=== PATIENT | female | born 1965 | race Caucasian/White ===

== ENCOUNTER → 2019-05-14 15:15 | Outpatient (CLI) | payer OTHER, SELFPAY ==
--- NOTE | 2019-05-14 15:15 | CYST_PTH ---
PATIENT: SCOT SHEPPARD LOC: [facility] U#:[id number] AGE/SX: 59/F ROOM: RE05/14/[address]: Dr. Jaspal Nagel MD : 1965 BED: DIS: SPEC #: [id number] RECD: 05/15/19 15:34 STATUS: ISABELLA BRUCE #: [id number] DAMION: 05/14/19 15:[address]: Jaspal Nagel DEPT: SURGICAL PATHOLOGY RECD BY: Rebecca Lowe ENTERED: 05/18/19 10:30 SP TYPE: Cyst OTHR DR: Dr. Riaz Louis, [facility] Tissues: CYST Procedures: Surgery Specimen Level III HEADER OPERATION: Right Dequervain's tendon release and cyst excision PRE-OP DIAGNOSIS: Radial styloid tenosynovitis and localized swelling, mass and lump right upper limb TISSUE SUBMITTED: Cyst right wrist MICROSCOPIC DIAGNOSIS Cyst of right wrist, excision: Consistent with ganglion cyst. AM:supriya 05/19/19 MICROSCOPIC DESCRIPTION Slides are reviewed. GROSS DESCRIPTION Received is one container labeled with the patient's name and not further designated. The specimen consists of an irregular fragment of yellow-white soft tissue measuring in aggregate 1.5 x 1 x 0.2 cm. The specimen is totally submitted in one cassette. / AM:supriya 05/18/19 TC:5 CPT: 99236
== END ==
LOC: LABSPEC 05-18 10:54
PROVIDERS: Family Provider Preventive Medicine Occupational Medicine; PCP Preventive Medicine Occupational Medicine; Referring Provider Orthopaedic Surgery; Visit Provider Orthopaedic Surgery
DX: M65.831 Other synovitis and tenosynovitis, right forearm (principal); M79.89 Other specified soft tissue disorders
CPT/HCPCS: 88304

== ENCOUNTER 2023-03-07 17:29 | Emergency (ER) | payer MEDICAID, SELFPAY ==
[2023-03-07 17:31] VITALS: BP 141/74; PULSE 97; RESP 16; TEMP 36.2; O2SAT 97; BMI 34.0
--- NOTE | 2023-03-07 18:28 | ED.VIS.LOWEX ---
HPI History of Present Illness Chief Complaint: Edema Narrative Narrative: 57-year-old female presenting with left leg swelling. Its been a new problem. She made an appointment to see her PCP but states it was swollen so she went to the urgent care. Urgent care sent her to the ER. She denies chest pain or shortness of breath. She denies any trauma. No numbness or tingling. She states the left leg does burn a little bit in the calf and in the foot. She has tried to elevate her leg but has not tried ice or compression. She is ambulatory. PFSH PFSH Medical History no medical history Allergy/AdvReac Type Severity Reaction Status Date / Time No Known Allergies Allergy Verified 03/07/23 17:30 Social History Smoking Status: Unknown if ever smoked ROS ROS ED Constitutional Constitutional ED: Denies chills, fever(s) or sweats Eyes Eyes: Denies blurry vision or change in vision ENT ENT ED: Denies ear pain or sore throat Cardiovascular Cardiovascular: Denies chest pain, palpitations or racing heartbeat Respiratory/Chest Respiratory/Chest: Denies cough, dyspnea or sputum Gastrointestinal Gastrointestinal: Denies abdominal pain, constipation, diarrhea, nausea or vomiting Genitourinary Genitourinary ED: Denies dysuria, hematuria or urinary frequency Musculoskeletal Musculoskeletal: Denies arthralgias, myalgias or neck pain Integumentary Reports other Details: Left lower extremity edema ; Denies abscess, Abrasions or rash Neurologic Neurologic: Denies headache(s), paresthesias or weakness Psychiatric Psychiatric: Denies anxiety, depression, suicidal ideation or suicidal thoughts Endocrine Endocrinology: Denies polydipsia or polyuria EXAM Physical Exam Const Vital Signs: 03/07/23 17:31 03/07/23 17:33 Temperature 97.2 F L Temperature Source Temporal Pulse Rate 97 Respiratory Rate 16 Respiratory Effort Normal Blood Pressure 141/74 H Blood Pressure Mean 96 Pulse Ox 97 Oxygen Delivery Method Room Air Positive well nourished General Appearance ED: NAD HEENT Reports moist mucous membranes normocephalic Eyes PERRL Resp normal respiratory effort Cardio regular rate and regular rhythm Extremity Extremity Narrative: Left lower extremity edema mostly in the left foot. There are some tenderness to palpation in left calf. Neuro oriented x3 and CN's II-XII intact bilaterally Sensorium / Orientation: alert Motor Exam: strength 5/5 throughout Psych mental status grossly normal Skin no wounds MDM MDM MDM Narrative Medical decision making narrative: Patient with unilateral leg swelling and pain. I will obtain a duplex ultrasound of the left lower extremity. Duplex ultrasound is negative for DVT. Patient counseled this. I recommended ice, elevation, compression for her. Return precautions discussed. Impression: 1. Left lower extremity edema Lab Data Attestation: I reviewed the patient's lab results. Radiography Diagnostic Testing: Clinical Impression(s) from Imaging Studies Venous Duplex 03/07/23 18:32 IMPRESSION: No sonographic evidence of deep venous thrombosis. Electronically Signed: Primo Bundy MD at 19:17 EDT , Discharge Plan Triage Chief Complaint: Edema ED Provider: Chapito Santillan Dx/Rx/DC Orders Instructions: ED Peripheral Edema, Unilateral Primary Care Provider: JAMES MCELROY Referrals: JAMES MCELROY [Other] Disposition Disposition: Home, Self Care
--- NOTE | 2023-03-07 18:32 | US_ITS ---
INDICATION: LT FOOT PAIN AND REDNESS EXAMINATION: Ultrasound US Venous Duplex LE Unilat / Limited TECHNIQUE: Nguyễn scale, pulse wave, and color flow Doppler imaging was performed of the lower extremity venous system. The left greater saphenous, common femoral, femoral, posterior tibial, peroneal and popliteal veins were interrogated. COMPARISON: None. FINDINGS: There is normal compression, augmentation, and color flow signal throughout the visualized deep lower extremity veins. US/Venous Duplex Imag/Limited/Uni IMPRESSION: No sonographic evidence of deep venous thrombosis. Electronically Signed: Primo Bundy MD at 19:17 EDT ,
== END 2023-03-07 20:54 | disposition home or self-care (01) ==
PROVIDERS: Emergency Provider Student in an Organized Health Care Education/Training Program; Visit Provider Student in an Organized Health Care Education/Training Program
DX: R60.0 Localized edema (principal); M79.606 Pain in leg, unspecified
CPT/HCPCS: 93971; 99282